=== PATIENT | male | born 1980 ===

== ENCOUNTER → 2024-01-04 06:07 | Outpatient (CLI) | payer OTHER ==
[2024-01-04 07:33] LABS: HEMOGLOBIN 15.2 g/dL (13-16.00); MEAN CELL VOLUME 86.5 fL (80.0-100.00); MEAN CORPUSCULAR HEMOGLOBIN 30.5 pg (27.00-32.0); MEAN CORPUSCULAR HGB CONC 35.3 g/dl (32.0-36.0); PLATELET COUNT 319 K/uL (150-450); RED BLOOD COUNT 4.97 M/uL (4.00-6.00); RED CELL DISTRIBUTION WIDTH 13.7 % (11.5-14.5)
[2024-01-04 08:07] LABS: BILIRUBIN TOTAL 0.63 mg/dL (0.3-1.2); CALCIUM 9.6 mg/dL (8.5-10.1); CREATININE SERUM 1.01 mg/dL (0.70-1.30); GFR 81.01; GLOBULINA 3.2 G/DL (2.4-3.5); POTASSIUM 4.89 mEq/L (3.5-5.1); TOTAL PROTEIN 7.2 gm/dL (6.4-8.2)
[2024-01-06 05:06] LABS: HEPATITIS A ANTIBODY IGG Negative (Negative); HEPATITIS B SURFACE ANTIBODY Non Reactive (.)
[2024-01-06 05:06] LABS: HEPATITIS B CORE IGG Negative (Negative); HEPATITIS C VIRUS ANTIBODY Non Reactive (Non Reactive)
[2024-01-06 13:07] LABS: chla t Negative (Negative); neiss Negative (Negative)
== END | disposition home or self-care (01) ==
LOC: LAB 06:07
PROVIDERS: ATTEND General Practice
DX: Z20.6 Contact with and (suspected) exposure to human immunodeficiency virus [HIV] (principal); Z20.2 Contact with and (suspected) exposure to infections with a predominantly sexual mode of transmission; Z20.5 Contact with and (suspected) exposure to viral hepatitis; B19.10 Unspecified viral hepatitis B without hepatic coma; B17.10 Acute hepatitis C without hepatic coma; A53.9 Syphilis, unspecified; Z11.59 Encounter for screening for other viral diseases; R19.5 Other fecal abnormalities; Z12.5 Encounter for screening for malignant neoplasm of prostate; Z13.220 Encounter for screening for lipoid disorders; Z11.3 Encounter for screening for infections with a predominantly sexual mode of transmission; D75.89 Other specified diseases of blood and blood-forming organs; R16.0 Hepatomegaly, not elsewhere classified; Z11.4 Encounter for screening for human immunodeficiency virus [HIV]; A60.02 Herpesviral infection of other male genital organs; E55.9 Vitamin D deficiency, unspecified; E55.0 Rickets, active; Z13.29 Encounter for screening for other suspected endocrine disorder; E29.8 Other testicular dysfunction

== ENCOUNTER 2024-02-01 06:36 | Outpatient (CLI) | payer OTHER ==
[2024-02-01 08:03] LABS: CALCIUM 9.5 mg/dL (8.5-10.1); CREATININE SERUM 0.83 mg/dL (0.70-1.30); GFR 101.6; POTASSIUM 4.24 mEq/L (3.5-5.1)
== END 2024-02-01 06:39 | disposition home or self-care (01) ==
LOC: LAB 06:36
DX: Z11.4 Encounter for screening for human immunodeficiency virus [HIV] (principal); Z29.81 Encounter for HIV pre-exposure prophylaxis